=== PATIENT | female | born 1980 | race Caucasian/White ===

== ENCOUNTER 2017-02-16 13:37 | Emergency (ER) | payer OTHER ==
[~2017-02-16] VITALS: Ht 180.3 cm; Wt 68.0 kg
[~2017-02-16 13:37] MED LIST: ALBUTEROL0.09 MG/A1 INH; ANAPROX DS550 MG PO; ATARAX25 MG PO; BENADRYL25 MG PO; CIPRO500 MG PO; CLARITIN10 M1 PO; DUONEB 3 MG/3 ML3 M1 INH; FLEXERIL5 MG PO; FLONASE ALLERG9.9 ML NS; FLUTICASON0.05 MG/AC NAS; Fioricet 325 MG1 TAB PO; HYDROCODONE BIT1 T11 PO; IBUPROFEN400 MG PO; KEFLEX500 MG PO; MOTRIN800 MG PO; MYLICON, MYLANT80 MG PO; Motrin,Rufen800 MG PO; NKHM; NKHM PO; NORCO 325 MG-51 TAB PO; NORCO 5-325 TA1 EACH PO; Orphenadrine C100 MG PO; PREDNICOT20 MG PO; PREDNISONE10 MG PO; PREDNISONE20 M1 PO; Percocet 325 MG1 TAB PO; ROBITUSSIN AC 110 ML PO; SYNTHROID0.025 MG PO; TRIAMCINOLONE M1 POW INH; VENTOLIN H0.09 MG/AC INH; VOLTAREN50 M1 PO; ZITHROMAX250 MG PO; ZOFRAN ODT4 MG SL; ZOFRAN4 MG PO
[2017-02-16] MEDS ORDERED: PREDNISONE10 MG PO (15:38)
[2017-02-16] MEDS ORDERED: LEVOFLOXACIN500 MG PO (15:38)
[2017-02-16] MEDS ORDERED: DUONEB 3 MG/3 ML3 M1 INH (15:45)
== END 2017-02-16 15:46 | disposition home or self-care (01) ==
LOC: ED 13:37
DX: J18.1 Lobar pneumonia, unspecified organism (principal); F17.200 Nicotine dependence, unspecified, uncomplicated; Z91.011 Allergy to milk products; Z91.012 Allergy to eggs; Z91.018 Allergy to other foods; Z88.2 Allergy status to sulfonamides; Z79.899 Other long term (current) drug therapy

== ENCOUNTER 2017-10-26 20:00 | Inpatient (IN) | payer SELFPAY ==
[~2017-10-26] VITALS: Ht 180.3 cm; Wt 64.6 kg
--- NOTE | ~2017-10-26 | EKG ---
[place], [place] ELECTROCARDIOGRAM REPORT [id number] UN[facility] #: [id number] ROOM: [facility] DOCTOR: LUCY WOODS,TOM BIRTHDATE: [birth year] DOS: 10/26/2017 TIME: 2114 hours. IMPRESSION: 1. Sinus rhythm, sinus tachycardia. 2. Left atrial enlargement. 3. Nonspecific ST-T changes. OTM AYALA MD CM:EKGRPT:ELECTROCARDIOGRAM REPORT [id number] 1302 TOM AYALA MD
[~2017-10-26 20:00] MED LIST changes: +LEVOFLOXACIN500 MG PO
[2017-10-26 20:02] VITALS: BP 181/94
[2017-10-26 20:38] LABS: BASO # 0.1 10*3/uL (0.0-0.1); EOS # 1.5 10*3/uL (0.0-0.4); EOS % 17.6 % (1.0-4.0); HEMATOCRIT 45.4 % (37.0-47.0); HEMOGLOBIN 14.9 g/dl (12.0-16.0); LYMPH # 1.6 10*3/uL (1.3-4.4); LYMPH % 19.6 % (27.0-41.0); MEAN CELL VOLUME 91.9 fl (81.0-99.0); MEAN CORPUSCULAR HGB 30.2 pg (27.0-31.0); MEAN CORPUSCULAR HGB CONC 32.8 g/dl (33.0-37.0); MEAN PLATELET VOLUME 9.4 fl (9.6-12.3); MONO # 0.6 10*3/uL (0.1-1.0); MONO % 7.3 % (3.0-9.0); NEUT # 4.5 10*3/uL (2.3-7.9); NEUT % 54.1 % (47.0-73.0); PLATELET COUNT AUTOMATED 289 10*3/uL (130-400); RED BLOOD COUNT 4.94 10*6/uL (4.10-5.10); RED CELL DISTRI WIDTH 13.2 % (0-14.5); WHITE BLOOD COUNT 8.2 10*3/uL (4.8-10.8)
[2017-10-26 20:50] LABS: BUN 8 mg/dl (7-24); CHLORIDE 101 mmol/L (98-107); POTASSIUM 3.6 mmol/L (3.5-5.1); SODIUM 137 mmol/L (136-145)
[2017-10-26 22:15] VITALS: BP 139/86
[2017-10-26 22:36] LABS: ABG BASE EXCESS 2.3 mmol/L (-2.0-2.0); ABG HCO3 26.9 mmol/l (22-26); ABG O2 SATURATION 93.8 % (95-97); ARTERIAL BLOOD GAS PCO2 44.1 mmHg (35-45); ARTERIAL BLOOD GAS PH 7.403 (7.35-7.45); ARTERIAL BLOOD GAS PO2 66.3 mmHg (80-90)
[2017-10-26 22:43] VITALS: BP 128/78
[2017-10-26 23:15] VITALS: BP 124/77
[2017-10-27 06:39] LABS: BASO % 0.3 % (0.0-1.0); HEMATOCRIT 40.4 % (37.0-47.0); HEMOGLOBIN 13.1 g/dl (12.0-16.0); LYMPH # 0.8 10*3/uL (1.3-4.4); LYMPH % 12.7 % (27.0-41.0); MEAN CELL VOLUME 92.2 fl (81.0-99.0); MEAN CORPUSCULAR HGB 29.9 pg (27.0-31.0); MEAN CORPUSCULAR HGB CONC 32.4 g/dl (33.0-37.0); MEAN PLATELET VOLUME 9.9 fl (9.6-12.3); MONO # 0.3 10*3/uL (0.1-1.0); MONO % 3.9 % (3.0-9.0); NEUT # 5.4 10*3/uL (2.3-7.9); NEUT % 82.8 % (47.0-73.0); PLATELET COUNT AUTOMATED 278 10*3/uL (130-400); RED BLOOD COUNT 4.38 10*6/uL (4.10-5.10); RED CELL DISTRI WIDTH 13.2 % (0-14.5); WHITE BLOOD COUNT 6.5 10*3/uL (4.8-10.8)
[2017-10-27 06:50] LABS: ACT PARTIAL THROMBO TIME 24.8 SECONDS (20.8-31.5)
[2017-10-27 07:09] LABS: ALBUMIN 2.8 gm/dl (3.1-4.5); ALKALINE PHOSPHATASE 62 U/L (45-117); BUN 6 mg/dl (7-24); CHLORIDE 106 mmol/L (98-107); CHOLESTEROL 111 mg/dL (<200); CREATININE 0.49 mg/dL (0.55-1.02); FREE T4 1.27 ng/dl (0.76-1.46); HDL CHOLESTEROL 36 mg/dl (40-60); LDL CHOLESTEROL 65 mg/dL (9-159); POTASSIUM 4.2 mmol/L (3.5-5.1); SGOT/AST 30 IU/L (3-35); SGPT/ALT 39 U/L (12-78); SODIUM 140 mmol/L (136-145); TOTAL PROTEIN 6.5 gm/dL (6.4-8.2); TRIGLYCERIDES 49 mg/dl (<150); VLDL CHOLESTEROL 10 mg/dL (6-40)
[2017-10-27 07:14] LABS: THYROID STIM HORMONE (HS) 0.119 uIU/ml (0.358-4.75)
[2017-10-27 07:34] LABS: VITAMIN D, 25-HYDROXY 10.2 ng/mL (30-100)
[2017-10-27 08:00] VITALS: BP 122/72
[2017-10-27 12:00] VITALS: BP 144/89
[2017-10-27 15:59] VITALS: BP 131/79
[2017-10-27 20:00] VITALS: BP 113/61
[2017-10-28] VITALS: BP 112/69
[2017-10-28 06:44] LABS: BUN 4 mg/dl (7-24); CHLORIDE 108 mmol/L (98-107); CREATININE 0.63 mg/dL (0.55-1.02); POTASSIUM 4.1 mmol/L (3.5-5.1); SODIUM 142 mmol/L (136-145)
[2017-10-28 06:49] LABS: BASO % 0.1 % (0.0-1.0); HEMATOCRIT 41.5 % (37.0-47.0); HEMOGLOBIN 13.5 g/dl (12.0-16.0); LYMPH # 1.1 10*3/uL (1.3-4.4); LYMPH % 7.5 % (27.0-41.0); MEAN CELL VOLUME 93.3 fl (81.0-99.0); MEAN CORPUSCULAR HGB 30.3 pg (27.0-31.0); MEAN CORPUSCULAR HGB CONC 32.5 g/dl (33.0-37.0); MEAN PLATELET VOLUME 9.4 fl (9.6-12.3); MONO # 0.6 10*3/uL (0.1-1.0); MONO % 3.9 % (3.0-9.0); NEUT # 13.3 10*3/uL (2.3-7.9); NEUT % 88.2 % (47.0-73.0); PLATELET COUNT AUTOMATED 361 10*3/uL (130-400); RED BLOOD COUNT 4.45 10*6/uL (4.10-5.10); RED CELL DISTRI WIDTH 13.4 % (0-14.5); WHITE BLOOD COUNT 15.1 10*3/uL (4.8-10.8)
[2017-10-28 08:00] VITALS: BP 112/64
[2017-10-28 12:00] VITALS: BP 104/64
[2017-10-28 16:00] VITALS: BP 130/72
[2017-10-28 20:01] VITALS: BP 122/61
[2017-10-29] VITALS: BP 136/77
[2017-10-29 08:00] VITALS: BP 138/60
[2017-10-29 08:12] LABS: HIV 1+2 AB + HIV1 P24 AG Non Reactive (Non Reactive)
[2017-10-29 12:00] VITALS: BP 126/64
[2017-10-29 16:00] VITALS: BP 118/76
[2017-10-29 20:00] VITALS: BP 142/92
[2017-10-30] VITALS: BP 121/72; BP 132/73
[2017-10-30 06:59] LABS: BASO % 0.1 % (0.0-1.0); HEMATOCRIT 39.6 % (37.0-47.0); HEMOGLOBIN 13.2 g/dl (12.0-16.0); LYMPH # 1.5 10*3/uL (1.3-4.4); LYMPH % 16.1 % (27.0-41.0); MEAN CELL VOLUME 91.7 fl (81.0-99.0); MEAN CORPUSCULAR HGB 30.6 pg (27.0-31.0); MEAN CORPUSCULAR HGB CONC 33.3 g/dl (33.0-37.0); MEAN PLATELET VOLUME 9.3 fl (9.6-12.3); MONO # 0.5 10*3/uL (0.1-1.0); MONO % 5.7 % (3.0-9.0); NEUT % 77.8 % (47.0-73.0); PLATELET COUNT AUTOMATED 340 10*3/uL (130-400); RED BLOOD COUNT 4.32 10*6/uL (4.10-5.10); RED CELL DISTRI WIDTH 13.5 % (0-14.5)
[2017-10-30 07:14] LABS: BUN 10 mg/dl (7-24); CHLORIDE 109 mmol/L (98-107); CREATININE 0.67 mg/dL (0.55-1.02); POTASSIUM 4.1 mmol/L (3.5-5.1); SODIUM 143 mmol/L (136-145)
[2017-10-30 08:00] VITALS: BP 136/94
[2017-10-30] MEDS ORDERED: MUCINEX ER600 MG PO (09:55)
[2017-10-30] MEDS ORDERED: LEVAQUIN750 M1 PO (09:55)
[2017-10-30] MEDS ORDERED: PREDNISONE10 MG PO (09:55)
[2017-10-30] MEDS ORDERED: VITAMIN D5000 UNI1 PO (09:55)
[2017-10-30 15:08] LABS: LEGIONELLA URINARY ANTIGEN Negative (Negative)
== END 2017-10-30 12:08 | disposition home or self-care (01) | DRG 871 ==
LOC: ED 20:00 → EDHOLD 21:54 → 5E 21:54
PROVIDERS: Emergency Medicine Emergency Medical Services; Hospitalist; Internal Medicine; Student in an Organized Health Care Education/Training Program; ADMIT Internal Medicine
DX: A41.9 Sepsis, unspecified organism (principal); J96.01 Acute respiratory failure with hypoxia; E43 Unspecified severe protein-calorie malnutrition; J18.1 Lobar pneumonia, unspecified organism; Z68.1 Body mass index [BMI] 19.9 or less, adult; R65.20 Severe sepsis without septic shock; I16.0 Hypertensive urgency; E55.9 Vitamin D deficiency, unspecified; J42 Unspecified chronic bronchitis; J45.909 Unspecified asthma, uncomplicated; F17.210 Nicotine dependence, cigarettes, uncomplicated; Z88.2 Allergy status to sulfonamides; Z91.012 Allergy to eggs; Z91.018 Allergy to other foods; Z79.899 Other long term (current) drug therapy; Z71.6 Tobacco abuse counseling; Z87.01 Personal history of pneumonia (recurrent); Z90.710 Acquired absence of both cervix and uterus; Z84.89 Family history of other specified conditions

== ENCOUNTER 2017-12-01 10:06 | Inpatient (IN) | payer SELFPAY ==
[~2017-12-01] VITALS: Ht 180.3 cm; Wt 65.0 kg
[2017-12-01] VITALS (7 sets, daily range): BP systolic 106–146; BP diastolic 66–92
--- NOTE | ~2017-12-01 | PR ---
[place], [place] PROGRESS NOTE NAME: ANGÉLICA COLEY UNIT #: [id number] ROOM: 4007 DOCTOR: CONCHIS ANAIS BIRTHDATE: [birth year] DOS: 12/04/2017 SUBJECTIVE: The patient was seen and examined at bedside. The patient was sitting upright in bed in no acute distress. The patient reports that her respiratory symptoms have dramatically improved since yesterday and continues to feel better every day. The patient denies any kind of chest pain, productive cough or shortness of breath this morning. OBJECTIVE: VITAL SIGNS: Temperature is 98.0, pulse is 92, respirations 18, blood pressure 116/78, pulse ox 94% on room air. HEENT: No acute change. NECK: Supple, nontender. CARDIOVASCULAR: Regular rate and rhythm. No murmur, gallops or rubs. S1 and S2 audible. LUNGS: No crackles, mild expiratory wheezes were noted; however, this was improved from the time of admission. ABDOMEN: Soft and nontender. Bowel sounds are present. EXTREMITIES: Without any acute edema. SKIN: Clear of any rashes or lesions. MUSCULOSKELETAL: No musculoskeletal deformity. NEUROLOGIC: Her cranial nerves are grossly intact. IMPRESSION: 1. Bronchial asthma with acute exacerbation. 2. Ground glass opacities in right upper lung and left upper lung concerning for bronchiolitis. 3. Chronic nicotine abuse. PLAN OF CARE: The patient was cleared for discharge from a pulmonary standpoint. The patient is encouraged to follow up with Dr. Paige outpatient for further care and encouraged to stop smoking if possible. Continue with home medications for respiratory therapy including antibiotics, steroid taper and bronchodilators. ANAIS CONCHIS, DO [place], [place] PROGRESS NOTE NAME: ANGÉLICA COLEY UNIT #: [id number] ROOM: [facility] [place] DOCTOR: CONCHIS ANAIS BIRTHDATE: [birth year] HARPAL PAIGE MD CM:MARITZA [id number] ANAIS BALDERRAMA DO 12/05/17 0248 interface
--- NOTE | ~2017-12-01 | PR ---
[place], [place] PROGRESS NOTE NAME: ANGÉLICA COLEY [facility] #: [id number] UNIT #: [id number] ROOM: 4007 DOCTOR: HARPAL GARSIA MD BIRTHDATE: [birth year] DOS: 12/03/2017 SUBJECTIVE: She has been noted comfortable at this time with the reduction of respiratory symptoms continued. Denies symptoms of her chest pain or hemoptysis. Denies any abdominal pain. OBJECTIVE: VITAL SIGNS: For the patient, which was done shows a normal temperature, respiratory rate 17, heart rate of 113-92, blood pressure 118/61-135/90. The pulse oxygen saturation on 2 liters nasal cannula 94% saturation. HEENT: No acute change. NECK: Supple. CARDIOVASCULAR: S1, S2 audible. LUNGS: The patient was noted without any crackles. Mild expiratory wheezing was noted. Decreased wheezing from previous examination of yesterday. ABDOMEN: Soft, nontender. Bowel sounds present. EXTREMITIES: Without any acute edema. SKIN: Visible skin. No lesions or rashes. MUSCULOSKELETAL: No deformities. CENTRAL NERVOUS SYSTEM: Intact. LABORATORY DATA: The culture of the sputum was pending. The Gram stain shows many gram-positive cocci in pairs, chains and clusters with few epithelial cells and white blood cells. Blood cultures, no bacterial growth taken on 12/01/2017. The CT scan of the chest that I ordered without contrast for the patient was reviewed. The CT scan of the chest does not show any lymphadenopathy. There was a ground glass opacity localized in the posterior basal subsegment of the left upper lobe was noted. Another opacity was also noted as ground glass opacity in the right upper lobe as well. There was no associated lymphadenopathy. 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 A 6-mm right lower lobe nodule noted, pleural based as well. IMPRESSION: 1. The patient who has been currently admitted to the hospital noted with acute exacerbation, appears like bronchial asthma. 2. Ground glass opacity in the right upper lobe as well as left upper lobe, possible consideration for the pneumonia including respiratory bronchiolitis with the interstitial lung disease related to tobacco use, cannot be completely excluded. 3. History of chronic nicotine abuse with gradual reduction and discontinuation. Culture of the sputum was noted as normal bob preliminary. Final culture results were pending. PLAN OF MANAGEMENT: Continuation of the corticosteroids, bronchodilators, antibiotics as previously. Reassessment of the CT scan in about 3 months for this patient would be needed to document the resolution of the problem. If the finding remains persistent, the patient would be first investigated for nonspecific interstitial pneumonitis and other etiology. Absolute tobacco cessation would be mandatory for this patient as well. Other supportive plan of [place], [place] PROGRESS NOTE NAME: [id number] UNIT #: [id number] ROOM: 4007 DOCTOR: GRECIA JACKSON MD,HARPAL BIRTHDATE: [birth year] therapy care and management plan. She would be started on the medication such as Dulera during the hospitalization. The dose of Solu-Medrol will be decreased to 40 mg b.i.d. HARPAL PAIGE MD CM:PNTRANS [id number] HARPAL JACKSON MD 12/04/17 0525 interface
--- NOTE | ~2017-12-01 | PR ---
[place], [place] PROGRESS NOTE NAME: ANGÉLICA COLEY UNIT #: [id number] ROOM: 4007 DOCTOR: HARPAL GARSIA MD BIRTHDATE: [birth year] DOS: 12/04/2017 SUBJECTIVE: The patient was independently seen and examined for today's visit with [id number] encounter. The history was confirmed. Physical examination was personally confirmed. All the labs were reviewed. The assessment, medical change, or recommendation was personally made. The note done by the medical art therapist was approved as well. The patient has been noted with marked improvement and reduction in respiratory symptoms, shortness of breath, and wheezing. There was no shortness of breath reported. Denies symptoms of chest pain or further chest congestion. OBJECTIVE: VITAL SIGNS: Essentially noted as normal. The pulse oxygen saturation on room air at rest was recorded 94% saturation. CARDIOVASCULAR: Auscultation of the chest was noted without any wheezing at this time. LUNGS: Decreased breath sounds noted in the lungs bilaterally. ABDOMEN: Flat, soft, nontender. LABORATORY DATA: Sputum culture preliminary noted as normal bob. Final culture results were pending. IMPRESSION: Small subpleural 6 mm nodule for the patient noted in the right lung with basilar areas of atelectasis, questionable pneumonia. She was also showing progressive resolution improvement in the findings of acute chronic obstructive pulmonary disease exacerbation and past history of nicotine dependence. PLAN OF MANAGEMENT: The patient could be discharged home on tapering dose of prednisone and antibiotics. Abstinence of the tobacco use will be encouraged for future. Short acting bronchodilators, use of the medication such as Dulera was advised as well. For the pulmonary nodule, further assessment was advised for office followup visit in about one month. The interstitial findings are noted on the chest x-ray ground glass opacity in the left lower lobe, will require further assessment, which may be related to the pulmonary infection or other etiologies. [place], [place] PROGRESS NOTE NAME: ANGÉLICA COLEY UNIT #: [id number] ROOM: [facility] DOCTOR: HARPAL GARSIA MD BIRTHDATE: [birth year] HARPAL PAIGE MD CM:PNTRANS [id number] HARPAL JACKSON MD 12/05/17 0050 interface
--- NOTE | ~2017-12-01 | CON ---
[place], [place] REPORT OF CONSULTATION NAME: ANGÉLICA COLEY [facility] #: [id number] UNIT #: [id number] ROOM: 4007 DOCTOR: HARPAL GARSIA MD BIRTHDATE: [birth year] DOS: 12/02/2017 REASON FOR CONSULTATION: To assess the patient for ongoing acute exacerbation of bronchial asthma assessment with recurrent hospitalization after recent admission to the hospital. HISTORY OF PRESENT ILLNESS: This is a 37-year-old white female who has been admitted in the hospital under the care of hospitalist services in 10/2018. The patient remains in the hospital from 10/27/2017 until 10/30/2017. She was treated for the right middle lobe pneumonia at that time. The patient stated that he has been noted with history of chronic tobacco use, which has been gradually decreased to few cigarettes a day. She came into the hospital and she started with having increased respiratory symptom past 1 week or so. She has started with having increased chest congestion with shortness of breath. Chest tightness was occurring intermittently with current symptom. The patient denies symptoms of hemoptysis. She does have symptoms of wheezing. The patient stated that she came into the hospital for further assessment thinking that she may be developing pneumonia again as previously. REVIEW OF SYSTEMS: CONSTITUTIONAL: She does have symptoms of fatigue and tiredness. Denies symptoms of fever or chills. EYES: Denies burning, redness, tenderness. EARS, NOSE, THROAT SYMPTOMS: Denies sore throat, hoarseness, otalgia, postnasal drainage or epistaxis. CARDIOVASCULAR: Denies anginal pain, edema of the lower extremities or palpitations. GASTROINTESTINAL: Dysphagia, nausea, vomiting, diarrhea, abdominal pain, hematemesis, melena. GENITOURINARY: Hematochezia. SKIN: Denies lesions or rashes. MUSCULOSKELETAL: Denies any symptoms of acute joint pain, redness, or tenderness. CENTRAL NERVOUS SYSTEM: Dizziness, headache, diplopia, syncopal episode. Remaining systems were reviewed. They were noted all negative. PAST MEDICAL HISTORY: The patient was reported as right middle lobe pneumonia for the patient treated in 10/2017. The patient with a possibility of bronchial asthma as well. SOCIAL HISTORY: The patient stated she is , has 2 children, lives at home. Known to have tobacco use of half a pack of cigarettes per day and stated she has not smoked any cigarettes in the past 1 week. Denies use of alcohol use, illicit drug use. Occupation related pulmonary exposure. FAMILY HISTORY: The patient was known with a seizure in the father and multiple sclerosis in the mother. HOME MEDICATIONS: Listed were used of DuoNeb, Mucinex, vitamin D, and Ventolin [place], [place] REPORT OF CONSULTATION NAME: ANGÉLICA COLEY UNIT #: [id number] ROOM: 4007 DOCTOR: HARPAL GARSIA MD BIRTHDATE: [birth year] HFA inhaler p.r.n. use as well. She stated that she also use the Flonase at times at home and Advair. DRUG ALLERGIES: NOTED ALLERGY TO BACTRIM. PHYSICAL EXAMINATION: GENERAL: A 37-year-old white female noted currently awake and alert without any acute distress at this time of the assessment. She has been sitting on the bed. Height of 5 feet 11 inches, weight 143 pounds, BMI 19.9. VITAL SIGNS: The patient showed the temperature noted 99.2 degree Fahrenheit. The respiratory rate of the patient recorded as 18-20, heart rate of 98-136 noted previously on admission. Respiratory rate 100. The blood pressure 118/82-132/84. Pulse oxygen saturation of the patient recorded on 2 liters nasal cannula 95% saturation. Admission oxygen saturation on room air was 88% at rest. HEENT: Examination shows head was atraumatic. Eye nonicterus. NECK: Supple. CARDIOVASCULAR: S1, S2 audible. LUNGS: Noted with moderate to severe reduced breath sounds bilaterally, diffuse expiratory wheezing without any crackles. ABDOMEN: Flat, soft, nontender, no organomegaly. Bowel sounds present. CENTRAL NERVOUS SYSTEM: Cranial nerves 2-12 intact. VISIBLE SKIN: No lesions or rashes. MUSCULOSKELETAL: No deformities. CENTRAL NERVOUS SYSTEM: Cranial nerves 2-12 intact without any gross focal neurologic deficit. LABORATORY DATA: CBC on admission on 12/01/2017 noted as normal CBC. The lactic acid noted 0.9 on 12/01/2017. CMP of the patient of 12/01/2017, normal BUN and creatinine. AST elevated at 155, ALT of 249. Normal alkaline phosphatase, bilirubin, total protein and albumin. The troponin first set was noted normal. CBC repeated this morning, WBC count 11.1, remaining CBC was normal. The PT, PTT till day was normal. CMP repeated this morning, AST, ALT was still elevated for the patient. Remaining electrolytes including BUN and creatinine remains normal. The review of the radiology data for this patient. The chest x-ray of the patient that was done for the patient previous admission for the patient was reviewed. The patient 10/26/2017, the patient shows increased interstitial marking, possible patchy infiltration in the right middle lobe was noted. The remaining lung was noted clear. Severe hyperinflation; however, noted. 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 She had a CT of the chest that was done in 2014 was also reviewed, shows small patchy area of ground glass opacity noted mostly in the left upper lobe. At that time, no other parenchymal abnormalities were noted. The chest x-ray of the patient that was done for this patient on this admission of 12/01/2017, for the patient shows reduction of the patchy infiltration; however, the finding was noted suboptimally resolved in the right middle lobe. Severe hyperinflation in the lung was still noted. The excess of the right upper lobe was still visible and previously without any change or other new abnormal findings. [place], [place] REPORT OF CONSULTATION NAME: [id number] UN[facility] #: [id number] ROOM: 4007 DOCTOR: HARPAL GARSIA MD BIRTHDATE: [birth year] IMPRESSION: 1. The patient who has been admitted to the hospital, seems to have a severe acute exacerbation of bronchial asthma or COPD should be considered as well with history of tobacco use. Severe hyperinflation of the lung for this patient is suggested possibility of a severe bronchial asthma as well. 2. Lack of compliance with the patient with the medication for the medical bronchial asthma cannot be completely excluded. History of nicotine abuse was also reported, but the patient stating no tobacco use in the past 1 week or so. Also, rule out other etiology for the current severe hyperinflation and COPD changes of this patient at this age is eosinophilic granuloma other kind of abnormalities in the lung parenchyma. PLAN OF TREATMENT: The patient will be ordered CT scan of the chest for the patient with high resolution of the patient without contrast for further detailed assessment of the lung parenchyma. In the meantime, continue the patient on the corticosteroids with the patient same dose of 40 mg q. 8h., DuoNeb q. 4h., and the antibiotics. Other supportive therapy, plan of management to be continued as well. Nicotine replacement patches has been already ordered for the patient to overcome any nicotine withdrawal symptoms by the primary care attending. Sputum for Gram stain culture was ordered for the patient as well. HARPAL PAIGE MD CM:CONSTR:REPORT OF CONSULTATION 1426 12/02/17 6589 interface
[~2017-12-01 10:06] MED LIST changes: +LEVAQUIN750 M1 PO; +MUCINEX ER600 MG PO; +VITAMIN D5000 UNI1 PO
[2017-12-01 11:01] LABS: BASO % 0.4 % (0.0-1.0); EOS # 0.1 10*3/uL (0.0-0.4); EOS % 0.7 % (1.0-4.0); HEMATOCRIT 44.1 % (37.0-47.0); HEMOGLOBIN 14.7 g/dl (12.0-16.0); LYMPH # 1.7 10*3/uL (1.3-4.4); LYMPH % 15.9 % (27.0-41.0); MEAN CELL VOLUME 90.4 fl (81.0-99.0); MEAN CORPUSCULAR HGB 30.1 pg (27.0-31.0); MEAN CORPUSCULAR HGB CONC 33.3 g/dl (33.0-37.0); MEAN PLATELET VOLUME 9.4 fl (9.6-12.3); MONO # 0.9 10*3/uL (0.1-1.0); MONO % 8.9 % (3.0-9.0); NEUT # 7.7 10*3/uL (2.3-7.9); NEUT % 73.8 % (47.0-73.0); PLATELET COUNT AUTOMATED 222 10*3/uL (130-400); RED BLOOD COUNT 4.88 10*6/uL (4.10-5.10); RED CELL DISTRI WIDTH 13.8 % (0-14.5); WHITE BLOOD COUNT 10.4 10*3/uL (4.8-10.8)
[2017-12-01 11:18] LABS: ALBUMIN 3.6 gm/dl (3.1-4.5); ALKALINE PHOSPHATASE 79 U/L (45-117); BUN 7 mg/dl (7-24); CHLORIDE 101 mmol/L (98-107); CREATININE 0.65 mg/dL (0.55-1.02); POTASSIUM 3.6 mmol/L (3.5-5.1); SGOT/AST 155 IU/L (3-35); SGPT/ALT 249 U/L (12-78); SODIUM 137 mmol/L (136-145); TOTAL PROTEIN 7.5 gm/dL (6.4-8.2)
[2017-12-01 11:22] LABS: TROPONIN I < 0.015 ng/ml (<0.045)
[2017-12-01] MEDS ORDERED: MUCINEX1200 M1 PO (14:16)
[2017-12-02] VITALS: BP 110/63
[2017-12-02 08:00] VITALS: BP 118/82
[2017-12-02 08:21] LABS: BASO % 0.1 % (0.0-1.0); HEMATOCRIT 44.9 % (37.0-47.0); HEMOGLOBIN 14.8 g/dl (12.0-16.0); LYMPH # 1.1 10*3/uL (1.3-4.4); LYMPH % 9.6 % (27.0-41.0); MEAN CELL VOLUME 90.2 fl (81.0-99.0); MEAN CORPUSCULAR HGB 29.7 pg (27.0-31.0); MEAN PLATELET VOLUME 9.8 fl (9.6-12.3); MONO # 0.6 10*3/uL (0.1-1.0); MONO % 5.6 % (3.0-9.0); NEUT # 9.3 10*3/uL (2.3-7.9); NEUT % 84.2 % (47.0-73.0); PLATELET COUNT AUTOMATED 265 10*3/uL (130-400); RED BLOOD COUNT 4.98 10*6/uL (4.10-5.10); RED CELL DISTRI WIDTH 13.9 % (0-14.5); WHITE BLOOD COUNT 11.1 10*3/uL (4.8-10.8)
[2017-12-02 08:47] LABS: ACT PARTIAL THROMBO TIME 23.1 SECONDS (20.8-31.5); INTERNATIONAL NORM RATIO 1.1 (2.0-3.5)
[2017-12-02 08:53] LABS: VITAMIN D, 25-HYDROXY 18.8 ng/mL (30-100)
[2017-12-02 08:54] LABS: ALBUMIN 3.5 gm/dl (3.1-4.5); ALKALINE PHOSPHATASE 77 U/L (45-117); BUN 9 mg/dl (7-24); CHLORIDE 106 mmol/L (98-107); CHOLESTEROL 152 mg/dL (<200); CREATININE 0.74 mg/dL (0.55-1.02); FREE T4 1.28 ng/dl (0.76-1.46); HDL CHOLESTEROL 55 mg/dl (40-60); LDL CHOLESTEROL 84 mg/dL (9-159); PHOSPHOROUS 3.2 mg/dL (2.5-4.9); POTASSIUM 4.2 mmol/L (3.5-5.1); SGOT/AST 156 IU/L (3-35); SGPT/ALT 262 U/L (12-78); SODIUM 143 mmol/L (136-145); TOTAL PROTEIN 7.6 gm/dL (6.4-8.2); TRIGLYCERIDES 67 mg/dl (<150); VLDL CHOLESTEROL 13 mg/dL (6-40)
[2017-12-02 08:59] LABS: THYROID STIM HORMONE (HS) 0.089 uIU/ml (0.358-4.75)
[2017-12-02 12:00] VITALS: BP 120/73
[2017-12-02 16:00] VITALS: BP 122/67
[2017-12-02 20:00] VITALS: BP 121/80
[2017-12-03] VITALS (7 sets, daily range): BP systolic 106–160; BP diastolic 60–90
[2017-12-03 09:07] LABS: HEPATITIS B SURFACE AG Negative (Negative)
[2017-12-03 13:29] LABS: HEPATITIS C VIRUS ANTIBODY 8.9 s/co (0.0-0.9)
[2017-12-04] VITALS: BP 118/72
[2017-12-04 04:00] VITALS: BP 122/71
[2017-12-04] MEDS ORDERED: LEVAQUIN750 M1 PO (07:28)
[2017-12-04] MEDS ORDERED: NICODERM CQ1 EAC2 T (07:28)
[2017-12-04] MEDS ORDERED: DULE1ARO INH (07:28)
[2017-12-04] MEDS ORDERED: PREDNISONE10 MG PO (07:28)
[2017-12-04 08:00] VITALS: BP 116/78
[2017-12-04] MEDS ORDERED: DUONEB 3 MG/3 ML3 M1 INH (10:40)
[2017-12-04] MEDS ORDERED: VITAMIN D5000 UNI1 PO ×2 (10:40→10:42)
[2017-12-04 16:00] VITALS: BP 120/74
== END 2017-12-04 18:44 | disposition home or self-care (01) | DRG 871 ==
LOC: ED 10:06 → EDHOLD 12:30 → 4E 12:30 → 4NE 12-02 21:43
PROVIDERS: Registered Nurse; Student in an Organized Health Care Education/Training Program
DX: A41.9 Sepsis, unspecified organism (principal); J96.01 Acute respiratory failure with hypoxia; E43 Unspecified severe protein-calorie malnutrition; J44.0 Chronic obstructive pulmonary disease with (acute) lower respiratory infection; J18.9 Pneumonia, unspecified organism; J44.1 Chronic obstructive pulmonary disease with (acute) exacerbation; R91.1 Solitary pulmonary nodule; J45.901 Unspecified asthma with (acute) exacerbation; Z68.1 Body mass index [BMI] 19.9 or less, adult; R65.20 Severe sepsis without septic shock; E55.9 Vitamin D deficiency, unspecified; F17.210 Nicotine dependence, cigarettes, uncomplicated; Z98.891 History of uterine scar from previous surgery; Z79.899 Other long term (current) drug therapy; Z90.710 Acquired absence of both cervix and uterus; Z88.1 Allergy status to other antibiotic agents; Z71.6 Tobacco abuse counseling; Z91.012 Allergy to eggs; Z91.011 Allergy to milk products; Z88.2 Allergy status to sulfonamides; Z91.018 Allergy to other foods; Z82.0 Family history of epilepsy and other diseases of the nervous system

== ENCOUNTER 2018-03-11 15:21 | Emergency (ER) | payer SELFPAY ==
[~2018-03-11] VITALS: Ht 154.9 cm; Wt 65.8 kg
[~2018-03-11 15:21] MED LIST changes: +DULE1ARO INH; +MUCINEX1200 M1 PO; +NICODERM CQ1 EAC2 T
[2018-03-11 16:31] LABS: BASO # 0.1 10*3/uL (0.0-0.1); BASO % 1.4 % (0.0-1.0); EOS # 0.7 10*3/uL (0.0-0.4); EOS % 10.7 % (1.0-4.0); HEMOGLOBIN 14.6 g/dl (12.0-16.0); LYMPH # 2.2 10*3/uL (1.3-4.4); LYMPH % 33.1 % (27.0-41.0); MEAN CELL VOLUME 90.9 fl (81.0-99.0); MEAN CORPUSCULAR HGB 29.5 pg (27.0-31.0); MEAN CORPUSCULAR HGB CONC 32.4 g/dl (33.0-37.0); MEAN PLATELET VOLUME 9.2 fl (9.6-12.3); MONO # 0.5 10*3/uL (0.1-1.0); MONO % 7.8 % (3.0-9.0); NEUT # 3.1 10*3/uL (2.3-7.9); NEUT % 46.8 % (47.0-73.0); PLATELET COUNT AUTOMATED 260 10*3/uL (130-400); RED BLOOD COUNT 4.95 10*6/uL (4.10-5.10); RED CELL DISTRI WIDTH 13.8 % (0-14.5); WHITE BLOOD COUNT 6.5 10*3/uL (4.8-10.8)
[2018-03-11 16:52] LABS: ALBUMIN 3.5 gm/dl (3.1-4.5); ALKALINE PHOSPHATASE 82 U/L (45-117); BUN 12 mg/dl (7-24); CHLORIDE 105 mmol/L (98-107); CREATININE 0.67 mg/dL (0.55-1.02); POTASSIUM 3.9 mmol/L (3.5-5.1); SGOT/AST 86 IU/L (3-35); SGPT/ALT 133 U/L (12-78); SODIUM 141 mmol/L (136-145)
[2018-03-11] MEDS ORDERED: LEVOFLOXACIN500 MG PO (17:59)
[2018-03-11] MEDS ORDERED: PREDNISONE10 MG PO (17:59)
[2018-03-11] MEDS ORDERED: DUONEB 3 MG/3 ML3 M1 INH (18:02)
== END 2018-03-11 18:07 | disposition home or self-care (01) ==
LOC: ED 15:21
PROVIDERS: Nurse Practitioner
DX: J45.901 Unspecified asthma with (acute) exacerbation (principal); F17.210 Nicotine dependence, cigarettes, uncomplicated; Z98.890 Other specified postprocedural states; Z90.710 Acquired absence of both cervix and uterus; Z79.899 Other long term (current) drug therapy; Z88.1 Allergy status to other antibiotic agents; Z88.8 Allergy status to other drugs, medicaments and biological substances; Z91.011 Allergy to milk products; Z88.2 Allergy status to sulfonamides

== ENCOUNTER 2018-12-25 02:26 | Emergency (ER) | payer OTHER ==
[~2018-12-25] VITALS: Ht 180.3 cm; Wt 65.8 kg
--- NOTE | ~2018-12-25 | EKG ---
[place], [place] ELECTROCARDIOGRAM REPORT NAME: ANGÉLICA COLEY UNIT #: [id number] ROOM: DOCTOR: EPIPHANY DRAFT REPORT BIRTHDATE: [birth year] [facility] Test Date: 2018-12-25 Test Time: 02:46:07 Pat Name: ANGÉLICA COLEY Department: ER Room: 6 Gender: F Fireperson: Thelma Piedra : 1980 Requested By: SANDHYA ROBERT Order Number: [id number] Reading MD: Aleena Solorzano MD Measurements Intervals [place] Rate: 87 P: 75 DE: 143 QRS: 77 QRSD: 84 T: 73 QT: 376 QTc: 453 Interpretive Statements Sinus rhythm Probable left atrial enlargement Nonspecific T abnrm, anterolateral leads Electronically Signed On 12-26-2018 9:47:01 PST by Aleena Solorzano MD CM:EKGRPT:ELECTROCARDIOGRAM REPORT [id number] 0947 SANDHYA DOSS DRAFT REPORT SANDHYA ROBERT DO
[2018-12-25 02:50] LABS: BASO # 0.1 10*3/uL (0.0-0.1); BASO % 0.6 % (0.0-1.0); EOS # 0.3 10*3/uL (0.0-0.4); EOS % 3.3 % (1.0-4.0); HEMATOCRIT 47.9 % (37.0-47.0); HEMOGLOBIN 15.3 g/dl (12.0-16.0); LYMPH # 2.6 10*3/uL (1.3-4.4); LYMPH % 32.8 % (27.0-41.0); MEAN CELL VOLUME 90.7 fl (81.0-99.0); MEAN CORPUSCULAR HGB CONC 31.9 g/dl (33.0-37.0); MEAN PLATELET VOLUME 9.1 fl (9.6-12.3); MONO # 0.6 10*3/uL (0.1-1.0); MONO % 7.3 % (3.0-9.0); NEUT # 4.5 10*3/uL (2.3-7.9); NEUT % 55.9 % (47.0-73.0); PLATELET COUNT AUTOMATED 229 10*3/uL (130-400); RED BLOOD COUNT 5.28 10*6/uL (4.10-5.10); RED CELL DISTRI WIDTH 14.9 % (0-14.5)
[2018-12-25 03:08] LABS: ALBUMIN 4.3 gm/dl (3.1-4.5); ALKALINE PHOSPHATASE 84 U/L (45-117); BUN 11 mg/dl (7-24); CHLORIDE 110 mmol/L (98-107); CREATININE 0.79 mg/dL (0.55-1.02); POTASSIUM 3.4 mmol/L (3.5-5.1); SGOT/AST 57 IU/L (3-35); SGPT/ALT 145 U/L (12-78); SODIUM 145 mmol/L (136-145); TOTAL PROTEIN 8.8 gm/dL (6.4-8.2)
[2018-12-25 03:09] LABS: BETA-HCG, QUANT < 1.0 mIU/mL (1-3); TROPONIN I < 0.015 ng/ml (<0.045)
== END 2018-12-25 04:02 | disposition home or self-care (01) ==
LOC: ED 02:26
PROVIDERS: Student in an Organized Health Care Education/Training Program
DX: S00.31XA Abrasion of nose, initial encounter (principal); S09.90XA Unspecified injury of head, initial encounter; R42 Dizziness and giddiness; R53.1 Weakness; Z88.2 Allergy status to sulfonamides; W18.39XA Other fall on same level, initial encounter; Y93.89 Activity, other specified; Y92.89 Other specified places as the place of occurrence of the external cause; Y99.8 Other external cause status

== ENCOUNTER 2019-01-13 09:06 | Emergency (ER) | payer OTHER ==
[~2019-01-13] VITALS: Ht 180.3 cm; Wt 65.8 kg
--- NOTE | ~2019-01-13 | EKG ---
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
[2019-01-13 09:42] LABS: BASO # 0.1 10*3/uL (0.0-0.1); BASO % 0.6 % (0.0-1.0); EOS # 0.2 10*3/uL (0.0-0.4); EOS % 1.9 % (1.0-4.0); HEMATOCRIT 44.9 % (37.0-47.0); HEMOGLOBIN 14.7 g/dl (12.0-16.0); LYMPH # 2.4 10*3/uL (1.3-4.4); LYMPH % 19.3 % (27.0-41.0); MEAN CELL VOLUME 88.7 fl (81.0-99.0); MEAN CORPUSCULAR HGB 29.1 pg (27.0-31.0); MEAN CORPUSCULAR HGB CONC 32.7 g/dl (33.0-37.0); MEAN PLATELET VOLUME 9.1 fl (9.6-12.3); MONO # 0.7 10*3/uL (0.1-1.0); MONO % 5.5 % (3.0-9.0); NEUT % 72.4 % (47.0-73.0); PLATELET COUNT AUTOMATED 299 10*3/uL (130-400); RED BLOOD COUNT 5.06 10*6/uL (4.10-5.10); RED CELL DISTRI WIDTH 14.8 % (0-14.5); WHITE BLOOD COUNT 12.4 10*3/uL (4.8-10.8)
[2019-01-13 09:50] LABS: BILIRUBIN NEGATIVE (NEGATIVE); BLOOD NEGATIVE (NEGATIVE); CLARITY CLEAR (CLEAR); COLOR YELLOW (YELLOW); GLUCOSE NEGATIVE (NEGATIVE); KETONE NEGATIVE (NEGATIVE); LEUKO ESTERASE NEGATIVE (NEGATIVE); NITRITE NEGATIVE (NEGATIVE); PH 7.5 (5.0-9.0); SPECIFIC GRAVITY 1.015 (1.005-1.030); UROBILINOGEN 0.2 E.U./dl (0.2-1.0)
[2019-01-13 09:57] LABS: ALBUMIN 3.7 gm/dl (3.1-4.5); ALKALINE PHOSPHATASE 87 U/L (45-117); BUN 9 mg/dl (7-24); CHLORIDE 108 mmol/L (98-107); CREATININE 0.72 mg/dL (0.55-1.02); POTASSIUM 3.7 mmol/L (3.5-5.1); SGOT/AST 119 IU/L (3-35); SGPT/ALT 264 U/L (12-78); SODIUM 142 mmol/L (136-145); TOTAL PROTEIN 7.9 gm/dL (6.4-8.2)
[2019-01-13 10:01] LABS: EPITHELIAL CELLS 0-2; MUCOUS TRACE; WBC 0-2 wbc/hpf (0-5)
[2019-01-13] MEDS ORDERED: ZITHROMAX250 MG PO (10:39)
[2019-01-13] MEDS ORDERED: PREDNISONE50 MG PO (10:39)
[2019-01-13] MEDS ORDERED: PROAIR HFA8.5 GM INH (10:39)
== END 2019-01-13 10:43 | disposition home or self-care (01) ==
LOC: ED 09:06
PROVIDERS: Nurse Practitioner Family
DX: J45.909 Unspecified asthma, uncomplicated (principal); Z88.2 Allergy status to sulfonamides; Z79.899 Other long term (current) drug therapy; Z90.710 Acquired absence of both cervix and uterus; Z87.891 Personal history of nicotine dependence

== ENCOUNTER 2019-03-12 06:18 | Emergency (ER) | payer OTHER ==
[~2019-03-12] VITALS: Ht 180.3 cm; Wt 72.7 kg
[~2019-03-12 06:18] MED LIST changes: +PREDNISONE50 MG PO; +PROAIR HFA8.5 GM INH
[2019-03-12 06:58] LABS: BILIRUBIN NEGATIVE (NEGATIVE); BLOOD NEGATIVE (NEGATIVE); CLARITY CLEAR (CLEAR); COLOR YELLOW (YELLOW); GLUCOSE NEGATIVE (NEGATIVE); KETONE NEGATIVE (NEGATIVE); LEUKO ESTERASE NEGATIVE (NEGATIVE); NITRITE NEGATIVE (NEGATIVE); PH 6.5 (5.0-9.0)
[2019-03-12 07:15] LABS: BACTERIA 1+; MUCOUS 2+
[2019-03-12 07:23] LABS: BASO # 0.1 10*3/uL (0.0-0.1); BASO % 0.8 % (0.0-1.0); EOS # 0.2 10*3/uL (0.0-0.4); EOS % 1.8 % (1.0-4.0); HEMATOCRIT 47.2 % (37.0-47.0); HEMOGLOBIN 15.3 g/dl (12.0-16.0); LYMPH # 3.1 10*3/uL (1.3-4.4); LYMPH % 31.8 % (27.0-41.0); MEAN CELL VOLUME 94.4 fl (81.0-99.0); MEAN CORPUSCULAR HGB 30.6 pg (27.0-31.0); MEAN CORPUSCULAR HGB CONC 32.4 g/dl (33.0-37.0); MONO % 9.9 % (3.0-9.0); NEUT # 5.4 10*3/uL (2.3-7.9); NEUT % 55.3 % (47.0-73.0); PLATELET COUNT AUTOMATED 315 10*3/uL (130-400); RED CELL DISTRI WIDTH 14.9 % (0-14.5); WHITE BLOOD COUNT 9.8 10*3/uL (4.8-10.8)
[2019-03-12 07:45] LABS: ALBUMIN 3.8 gm/dl (3.1-4.5); ALKALINE PHOSPHATASE 79 U/L (45-117); BUN 14 mg/dl (7-24); CHLORIDE 107 mmol/L (98-107); POTASSIUM 4.2 mmol/L (3.5-5.1); SGOT/AST 110 IU/L (3-35); SGPT/ALT 251 U/L (12-78); SODIUM 142 mmol/L (136-145)
[2019-03-12 08:24] LABS: THYROXINE (T4) TOTAL 11.7 ug/dl (4.8-13.9)
[2019-03-12 08:28] LABS: THYROID STIM HORMONE (HS) 1.55 uIU/ml (0.358-4.75)
[2019-03-13 06:12] LABS: HEPATITIS B SURFACE AG Negative (Negative)
[2019-03-13 10:41] LABS: HEPATITIS C VIRUS ANTIBODY >11.0 s/co (0.0-0.9)
== END 2019-03-12 08:15 | disposition home or self-care (01) ==
LOC: ED 06:18
PROVIDERS: Emergency Medicine; Emergency Medicine Emergency Medical Services
DX: R25.2 Cramp and spasm (principal); B19.20 Unspecified viral hepatitis C without hepatic coma; E07.89 Other specified disorders of thyroid; F17.200 Nicotine dependence, unspecified, uncomplicated; J45.909 Unspecified asthma, uncomplicated; Z98.890 Other specified postprocedural states; Z90.710 Acquired absence of both cervix and uterus; Z88.1 Allergy status to other antibiotic agents; Z88.8 Allergy status to other drugs, medicaments and biological substances; Z88.2 Allergy status to sulfonamides; Z79.899 Other long term (current) drug therapy

== ENCOUNTER 2019-08-05 09:38 | Emergency (ER) | payer OTHER ==
[~2019-08-05] VITALS: Wt 77.1 kg
[2019-08-05] MEDS ORDERED: PROVENTIL HFA6.7 GM INH (11:23)
[2019-08-05] MEDS ORDERED: PREDNISONE20 M1 PO (11:23)
[2019-08-05] MEDS ORDERED: TESSALON PERLE100 M1 PO (11:23)
== END 2019-08-05 11:37 | disposition home or self-care (01) ==
LOC: ED 09:38
DX: J45.909 Unspecified asthma, uncomplicated (principal); F11.90 Opioid use, unspecified, uncomplicated; F12.10 Cannabis abuse, uncomplicated; F17.210 Nicotine dependence, cigarettes, uncomplicated; Z98.890 Other specified postprocedural states; Z90.710 Acquired absence of both cervix and uterus; Z88.1 Allergy status to other antibiotic agents; Z88.2 Allergy status to sulfonamides; Z88.8 Allergy status to other drugs, medicaments and biological substances

== ENCOUNTER 2019-09-07 10:43 | Emergency (ER) | payer OTHER ==
[~2019-09-07] VITALS: Ht 180.3 cm; Wt 79.4 kg
[~2019-09-07 10:43] MED LIST changes: +PROVENTIL HFA6.7 GM INH; +TESSALON PERLE100 M1 PO
[2019-09-07 12:16] LABS: BASO # 0.1 10*3/uL (0.0-0.1); BASO % 0.6 % (0.0-1.0); EOS # 0.1 10*3/uL (0.0-0.4); EOS % 1.5 % (1.0-4.0); HEMATOCRIT 46.4 % (37.0-47.0); HEMOGLOBIN 15.1 g/dl (12.0-16.0); LYMPH # 2.2 10*3/uL (1.3-4.4); LYMPH % 26.4 % (27.0-41.0); MEAN CELL VOLUME 92.4 fl (81.0-99.0); MEAN CORPUSCULAR HGB 30.1 pg (27.0-31.0); MEAN CORPUSCULAR HGB CONC 32.5 g/dl (33.0-37.0); MEAN PLATELET VOLUME 9.2 fl (9.6-12.3); MONO # 0.6 10*3/uL (0.1-1.0); NEUT # 5.3 10*3/uL (2.3-7.9); NEUT % 64.1 % (47.0-73.0); PLATELET COUNT AUTOMATED 376 10*3/uL (130-400); RED BLOOD COUNT 5.02 10*6/uL (4.10-5.10); RED CELL DISTRI WIDTH 12.9 % (0-14.5); WHITE BLOOD COUNT 8.3 10*3/uL (4.8-10.8)
[2019-09-07 12:22] LABS: BILIRUBIN NEGATIVE (NEGATIVE); BLOOD NEGATIVE (NEGATIVE); CLARITY CLEAR (CLEAR); COLOR YELLOW (YELLOW); GLUCOSE NEGATIVE (NEGATIVE); KETONE NEGATIVE (NEGATIVE); LEUKO ESTERASE NEGATIVE (NEGATIVE); NITRITE NEGATIVE (NEGATIVE); PH 6.5 (5.0-9.0); SPECIFIC GRAVITY <= 1.005 (1.005-1.030); UROBILINOGEN 0.2 E.U./dl (0.2-1.0)
[2019-09-07 12:31] LABS: URINE AMPHETAMINES > 1000 (1000ng/ml); URINE BARBITURATES < 200 (200ng/ml); URINE BENZODIAZEPINES < 200 (200ng/ml); URINE CANNABINOIDS (THC) < 50 (50ng/ml); URINE COCAINE > 300 (300ng/ml); URINE METHADONE < 300 (300ng/ml); URINE OPIATES < 300 (300ng/ml)
[2019-09-07 12:31] LABS: ALBUMIN 4.3 gm/dl (3.1-4.5); ALKALINE PHOSPHATASE 76 U/L (45-117); BUN 9 mg/dl (7-24); CHLORIDE 107 mmol/L (98-107); CREATININE 0.79 mg/dL (0.55-1.02); POTASSIUM 3.2 mmol/L (3.5-5.1); SGOT/AST 32 IU/L (3-35); SGPT/ALT 68 U/L (12-78); SODIUM 139 mmol/L (136-145); TOTAL PROTEIN 8.7 gm/dL (6.4-8.2)
[2019-09-07 12:33] LABS: URINE PHENCYCLIDINE < 25 (25ng/ml)
[2019-09-07 12:34] LABS: ACETAMINOPHEN (TYLENOL) < 5.0 ug/ml (10-30); ETHYL ALCOHOL < 3.0 mg/dl (<3)
[2019-09-07 12:48] LABS: EPITHELIAL CELLS 0-2; WBC 0-2 wbc/hpf (0-5)
[2019-09-07] MEDS ORDERED: VISTARIL25 M2 PO (13:05)
== END 2019-09-07 13:37 | disposition home or self-care (01) ==
LOC: ED 10:43
PROVIDERS: Physician Assistant
DX: F41.9 Anxiety disorder, unspecified (principal); F17.200 Nicotine dependence, unspecified, uncomplicated; F11.90 Opioid use, unspecified, uncomplicated; Z88.2 Allergy status to sulfonamides; Z88.8 Allergy status to other drugs, medicaments and biological substances; Z79.899 Other long term (current) drug therapy; Z90.710 Acquired absence of both cervix and uterus

== ENCOUNTER 2019-09-18 14:46 | Inpatient (IN) | payer OTHER ==
[~2019-09-18] VITALS: Ht 180.3 cm; Wt 75.3 kg
--- NOTE | ~2019-09-18 | EKG ---
[place], [place] ELECTROCARDIOGRAM REPORT NAME: ANGÉLICA GROVES UNIT #: [id number] ROOM: [facility] DOCTOR: KAYY DRAFT REPORT BIRTHDATE: [birth year] [facility] Test Date: 2019-09-18 Test Time: 20:20:02 Pat Name: ANGÉLICA GROVES Department: Room: [facility] Gender: F Mh Teacher: Chika Cochran : 1980 Requested By: NISHANT MATA Order Number: [id number] Reading MD: Neville Burk MD Measurements Intervals [place] Rate: 94 P: 76 VT: 146 QRS: 80 QRSD: 82 T: 71 QT: 375 QTc: 469 Interpretive Statements Sinus rhythm Left atrial enlargement Nonspecific T abnrm, anterolateral leads Compared to ECG 04/09/2019 08:33:36 No significant changes Electronically Signed On 09-21-2019 13:01:33 PDT by Neville Burk MD CM:EKGRPT:ELECTROCARDIOGRAM REPORT 19 1301 NISHANT SULTANA DRAFT REPORT NISHANT MATA
--- NOTE | ~2019-09-18 | EKG ---
[place], [place] ELECTROCARDIOGRAM REPORT NAME: ANGÉLICA GROVES UNIT #: [id number] ROOM: [facility] DOCTOR: EPIPHANY DRAFT REPORT BIRTHDATE: [birth year] [facility] Test Date: 2019-09-18 Test Time: 15:43:43 Pat Name: ANGÉLICA GROVES Department: Room: [facility] Gender: F Director Construction Services: : 1980 Requested By: JOSE CONNER DNP Order Number: [id number] Reading MD: Neville Burk MD Measurements Intervals [place] Rate: 90 P: 67 CA: 146 QRS: 74 QRSD: 79 T: 72 QT: 381 QTc: 467 Interpretive Statements Sinus rhythm Probable left atrial enlargement Artifact in lead(s) III,aVL,aVF Compared to ECG 04/09/2019 08:33:36 No significant changes Electronically Signed On 09-21-2019 13:00:53 PDT by Neville Burk MD CM:EKGRPT:ELECTROCARDIOGRAM REPORT 1543 1300 JOSE CONNER DNP EPIPHANY DRAFT REPORT JOSE CONNER DNP
--- NOTE | ~2019-09-18 | EKG ---
[place], [place] ELECTROCARDIOGRAM REPORT NAME: ANGÉLICA GROVES UNIT #: [id number] ROOM: [facility] DOCTOR: KAYY DRAFT REPORT BIRTHDATE: [address] [facility] Test Date: 2019-09-18 Test Time: 17:58:02 Pat Name: ANGÉLICA GROVES Department: Room: [facility] Gender: F Aircraft Mechanic Electrical And Radio: : 1980 Requested By: JOSE CONNER DNP Order Number: [id number] Reading MD: Neville Burk MD Measurements Intervals [place] Rate: 85 P: 82 DE: 147 QRS: 81 QRSD: 86 T: 73 QT: 401 QTc: 477 Interpretive Statements Sinus rhythm Probable left atrial enlargement Baseline wander in lead(s) V2 Compared to ECG 04/09/2019 08:33:36 No significant changes Electronically Signed On 09-21-2019 13:01:28 PDT by Neville Burk MD CM:EKGRPT:ELECTROCARDIOGRAM REPORT [id number] 1301 JOSE CONNER DNP EPIPHANY DRAFT REPORT JOSE CONNER DNP
[~2019-09-18 14:46] MED LIST changes: +VISTARIL25 M2 PO
[2019-09-18 14:47] VITALS: BP 147/92
[2019-09-18 15:12] LABS: BASO # 0.1 10*3/uL (0.0-0.1); BASO % 0.6 % (0.0-1.0); EOS # 0.1 10*3/uL (0.0-0.4); EOS % 1.4 % (1.0-4.0); HEMATOCRIT 44.2 % (37.0-47.0); HEMOGLOBIN 14.4 g/dl (12.0-16.0); LYMPH # 2.3 10*3/uL (1.3-4.4); LYMPH % 26.1 % (27.0-41.0); MEAN CELL VOLUME 91.7 fl (81.0-99.0); MEAN CORPUSCULAR HGB 29.9 pg (27.0-31.0); MEAN CORPUSCULAR HGB CONC 32.6 g/dl (33.0-37.0); MEAN PLATELET VOLUME 9.2 fl (9.6-12.3); MONO # 0.7 10*3/uL (0.1-1.0); MONO % 8.2 % (3.0-9.0); NEUT # 5.6 10*3/uL (2.3-7.9); NEUT % 63.5 % (47.0-73.0); PLATELET COUNT AUTOMATED 301 10*3/uL (130-400); RED BLOOD COUNT 4.82 10*6/uL (4.10-5.10); WHITE BLOOD COUNT 8.9 10*3/uL (4.8-10.8)
[2019-09-18 15:45] LABS: ALBUMIN 3.9 gm/dl (3.1-4.5); ALKALINE PHOSPHATASE 62 U/L (45-117); BUN 11 mg/dl (7-24); CHLORIDE 107 mmol/L (98-107); LIPASE 101 U/L (73-393); POTASSIUM 3.8 mmol/L (3.5-5.1); SGOT/AST 32 IU/L (3-35); SGPT/ALT 64 U/L (12-78); SODIUM 138 mmol/L (136-145); TOTAL PROTEIN 7.6 gm/dL (6.4-8.2)
[2019-09-18 15:46] LABS: TROPONIN I < 0.015 ng/ml (<0.045)
[2019-09-18 16:00] VITALS: BP 146/92
[2019-09-18 16:02] LABS: INTERNATIONAL NORM RATIO 0.9 (2.0-3.5)
[2019-09-18 17:10] VITALS: BP 144/88
[2019-09-18] MEDS ORDERED: LAMICTAL25 MG PO (18:08)
[2019-09-18 18:30] VITALS: BP 144/88
--- NOTE | 2019-09-18 19:25 | NUR ---
A 39, admitted to , under the services of DESIREE Neves DO with a diagnosis of SYNCOPY. Chief complaint is SYNCOPY AND COLLAPSE. Patient arrived via stretcher from ER. Monitor applied. Initial assessment completed. Vital signs taken and recorded. DESIREE NEVES DO notified of admission to the unit. Orders received. See assessment for past medical history, medications and allergies. Patient and/or family oriented to unit. [facility] [[email or web address] visitation policy reviewed. Clothing/patient valuable form completed. LENCHO KUMARI
[2019-09-18 19:33] VITALS: BP 144/88
[2019-09-18 20:00] VITALS: BP 122/70
[2019-09-19] VITALS: BP 123/69
[2019-09-19 00:10] LABS: BILIRUBIN 1+ (NEGATIVE); BLOOD NEGATIVE (NEGATIVE); CLARITY SL CLOUDY (CLEAR); COLOR YELLOW (YELLOW); GLUCOSE NEGATIVE (NEGATIVE); KETONE TRACE (NEGATIVE); LEUKO ESTERASE NEGATIVE (NEGATIVE); NITRITE NEGATIVE (NEGATIVE); SPECIFIC GRAVITY 1.015 (1.005-1.030)
[2019-09-19 00:19] LABS: EPITHELIAL CELLS 45-50
[2019-09-19 00:20] LABS: BACTERIA 1+; RBC 0-2 rbc/hpf (0-2); WBC 0-2 wbc/hpf (0-5)
[2019-09-19 00:27] LABS: URINE AMPHETAMINES > 1000 (1000ng/ml); URINE BARBITURATES < 200 (200ng/ml); URINE BENZODIAZEPINES < 200 (200ng/ml); URINE CANNABINOIDS (THC) < 50 (50ng/ml); URINE COCAINE > 300 (300ng/ml); URINE METHADONE < 300 (300ng/ml)
[2019-09-19 00:31] LABS: URINE PHENCYCLIDINE < 25 (25ng/ml)
[2019-09-19 00:35] LABS: URINE OPIATES < 300 (300ng/ml)
--- NOTE | 2019-09-19 02:20 | NUR ---
PATIENT SIGNED OUT AMA. PAY STATION COLLECTOR AND HEPLOCK REMOVED. PATIENT AMBULATED OFF FLOOR.
== END 2019-09-19 02:20 | disposition left against medical advice (07) | DRG 204 ==
LOC: ED 14:46 → EDHOLD 18:01 → 5E 18:30
PROVIDERS: Nurse Practitioner Family; ADMIT Family Medicine
DX: R55 Syncope and collapse (principal); F41.9 Anxiety disorder, unspecified; J45.909 Unspecified asthma, uncomplicated; E03.9 Hypothyroidism, unspecified; E83.41 Hypermagnesemia; M50.30 Other cervical disc degeneration, unspecified cervical region; F17.200 Nicotine dependence, unspecified, uncomplicated; Z53.29 Procedure and treatment not carried out because of patient's decision for other reasons; Z90.710 Acquired absence of both cervix and uterus; Z82.0 Family history of epilepsy and other diseases of the nervous system; Z88.2 Allergy status to sulfonamides

== ENCOUNTER 2019-09-23 18:08 | Emergency (ER) | payer OTHER ==
[~2019-09-23] VITALS: Ht 180.3 cm; Wt 74.8 kg
[~2019-09-23 18:08] MED LIST changes: +LAMICTAL25 MG PO
== END 2019-09-23 19:09 | disposition home or self-care (01) ==
LOC: ED 18:08
DX: Z04.71 Encounter for examination and observation following alleged adult physical abuse (principal); J44.9 Chronic obstructive pulmonary disease, unspecified; E03.9 Hypothyroidism, unspecified; F17.200 Nicotine dependence, unspecified, uncomplicated; Z88.2 Allergy status to sulfonamides; Y08.89XA Assault by other specified means, initial encounter; Y93.89 Activity, other specified; Y92.89 Other specified places as the place of occurrence of the external cause; Y99.8 Other external cause status

== ENCOUNTER 2019-12-28 20:13 | Emergency (ER) | payer OTHER ==
[~2019-12-28] VITALS: Wt 77.1 kg
[2019-12-28 21:42] LABS: BASO # 0.1 10*3/uL (0.0-0.1); BASO % 0.6 % (0.0-1.0); EOS # 0.1 10*3/uL (0.0-0.4); EOS % 0.8 % (1.0-4.0); HEMATOCRIT 42.4 % (37.0-47.0); HEMOGLOBIN 13.9 g/dl (12.0-16.0); LYMPH # 2.4 10*3/uL (1.3-4.4); LYMPH % 29.2 % (27.0-41.0); MEAN CELL VOLUME 91.2 fl (81.0-99.0); MEAN CORPUSCULAR HGB 29.9 pg (27.0-31.0); MEAN CORPUSCULAR HGB CONC 32.8 g/dl (33.0-37.0); MEAN PLATELET VOLUME 9.3 fl (9.6-12.3); MONO # 0.7 10*3/uL (0.1-1.0); MONO % 8.8 % (3.0-9.0); NEUT % 60.5 % (47.0-73.0); PLATELET COUNT AUTOMATED 255 10*3/uL (130-400); RED BLOOD COUNT 4.65 10*6/uL (4.10-5.10); RED CELL DISTRI WIDTH 13.1 % (0-14.5); WHITE BLOOD COUNT 8.3 10*3/uL (4.8-10.8)
[2019-12-28 21:50] LABS: BILIRUBIN NEGATIVE (NEGATIVE); BLOOD NEGATIVE (NEGATIVE); CLARITY CLEAR (CLEAR); COLOR YELLOW (YELLOW); GLUCOSE NEGATIVE (NEGATIVE); KETONE NEGATIVE (NEGATIVE); LEUKO ESTERASE NEGATIVE (NEGATIVE); NITRITE NEGATIVE (NEGATIVE); SPECIFIC GRAVITY 1.005 (1.005-1.030); UROBILINOGEN 0.2 E.U./dl (0.2-1.0)
[2019-12-28 21:55] LABS: RBC 0-2 rbc/hpf (0-2)
[2019-12-28 21:56] LABS: ALBUMIN 3.5 gm/dl (3.1-4.5); ALKALINE PHOSPHATASE 63 U/L (45-117); BUN 8 mg/dl (7-24); CHLORIDE 112 mmol/L (98-107); CREATININE 0.86 mg/dL (0.55-1.02); POTASSIUM 3.6 mmol/L (3.5-5.1); SGOT/AST 22 IU/L (3-35); SGPT/ALT 71 U/L (12-78); SODIUM 143 mmol/L (136-145); TOTAL PROTEIN 7.1 gm/dL (6.4-8.2)
[2019-12-28 21:56] LABS: BACTERIA 2+; WBC 0-2 wbc/hpf (0-5)
== END 2019-12-29 02:36 | disposition home or self-care (01) ==
LOC: ED 20:13
PROVIDERS: Emergency Medicine
DX: R51 Headache (principal); R56.9 Unspecified convulsions; R20.0 Anesthesia of skin; R41.0 Disorientation, unspecified; R11.10 Vomiting, unspecified; J45.909 Unspecified asthma, uncomplicated; E03.9 Hypothyroidism, unspecified; J44.9 Chronic obstructive pulmonary disease, unspecified; F11.10 Opioid abuse, uncomplicated; F12.10 Cannabis abuse, uncomplicated; Z87.891 Personal history of nicotine dependence; Z90.710 Acquired absence of both cervix and uterus

== ENCOUNTER 2020-06-29 14:35 | Observation (INO) | payer OTHER ==
[~2020-06-29] VITALS: Ht 180.3 cm; Wt 68.0 kg
[2020-06-29 14:43] VITALS: BP 150/99
[2020-06-29 15:36] LABS: BASO # 0.1 10*3/uL (0.0-0.1); BASO % 0.6 % (0.0-1.0); EOS # 0.1 10*3/uL (0.0-0.4); EOS % 0.7 % (1.0-4.0); HEMATOCRIT 43.1 % (37.0-47.0); LYMPH # 2.5 10*3/uL (1.3-4.4); LYMPH % 28.1 % (27.0-41.0); MEAN CELL VOLUME 88.3 fl (81.0-99.0); MEAN CORPUSCULAR HGB 29.5 pg (27.0-31.0); MEAN CORPUSCULAR HGB CONC 33.4 g/dl (33.0-37.0); MEAN PLATELET VOLUME 9.2 fl (9.6-12.3); MONO # 0.7 10*3/uL (0.1-1.0); MONO % 7.5 % (3.0-9.0); NEUT # 5.7 10*3/uL (2.3-7.9); NEUT % 62.9 % (47.0-73.0); PLATELET COUNT AUTOMATED 291 10*3/uL (130-400); RED BLOOD COUNT 4.88 10*6/uL (4.10-5.10); RED CELL DISTRI WIDTH 13.4 % (0-14.5)
[2020-06-29 16:02] LABS: ALBUMIN 4.2 gm/dl (3.1-4.5); ALKALINE PHOSPHATASE 56 U/L (45-117); BUN 15 mg/dl (7-24); CHLORIDE 109 mmol/L (98-107); CREATININE 0.87 mg/dL (0.55-1.02); POTASSIUM 3.3 mmol/L (3.5-5.1); SGOT/AST 32 IU/L (3-35); SGPT/ALT 86 U/L (12-78); SODIUM 137 mmol/L (136-145); TOTAL PROTEIN 8.2 gm/dL (6.4-8.2)
[2020-06-29 20:00] VITALS: BP 146/90
[2020-06-29 20:30] VITALS: BP 146/90
[2020-06-30] VITALS: BP 136/85
[2020-06-30 06:52] LABS: BASO # 0.1 10*3/uL (0.0-0.1); BASO % 0.6 % (0.0-1.0); EOS # 0.2 10*3/uL (0.0-0.4); EOS % 2.4 % (1.0-4.0); LYMPH # 2.8 10*3/uL (1.3-4.4); MEAN CELL VOLUME 89.4 fl (81.0-99.0); MEAN CORPUSCULAR HGB 29.1 pg (27.0-31.0); MEAN CORPUSCULAR HGB CONC 32.6 g/dl (33.0-37.0); MEAN PLATELET VOLUME 9.6 fl (9.6-12.3); MONO # 0.6 10*3/uL (0.1-1.0); MONO % 7.8 % (3.0-9.0); NEUT # 4.1 10*3/uL (2.3-7.9); NEUT % 52.9 % (47.0-73.0); PLATELET COUNT AUTOMATED 262 10*3/uL (130-400); RED BLOOD COUNT 4.36 10*6/uL (4.10-5.10); RED CELL DISTRI WIDTH 13.2 % (0-14.5); WHITE BLOOD COUNT 7.8 10*3/uL (4.8-10.8)
[2020-06-30 07:23] LABS: CHLORIDE 113 mmol/L (98-107); POTASSIUM 3.9 mmol/L (3.5-5.1); SODIUM 141 mmol/L (136-145)
[2020-06-30 07:35] LABS: ALBUMIN 3.2 gm/dl (3.1-4.5); ALKALINE PHOSPHATASE 45 U/L (45-117); BUN 14 mg/dl (7-24); CHOLESTEROL 108 mg/dL (<200); CREATININE 0.81 mg/dL (0.55-1.02); FREE T4 1.14 ng/dl (0.76-1.46); HDL CHOLESTEROL 49 mg/dl (40-60); LDL CHOLESTEROL 49 mg/dL (9-159); SGOT/AST 24 IU/L (3-35); SGPT/ALT 61 U/L (12-78); TOTAL PROTEIN 6.4 gm/dL (6.4-8.2); TRIGLYCERIDES 49 mg/dl (<150); VLDL CHOLESTEROL 10 mg/dL (6-40)
[2020-06-30 07:36] LABS: ACT PARTIAL THROMBO TIME 24.5 SECONDS (20.0-32.1); INTERNATIONAL NORM RATIO 0.9 (2.0-3.5)
[2020-06-30 08:00] VITALS: BP 112/72
[2020-06-30] MEDS ORDERED: DOXYCYCLINE100 M3 PO (09:56)
[2020-06-30] MEDS ORDERED: KEFLEX500 M1 PO (09:56)
== END 2020-06-30 10:41 | disposition home or self-care (01) ==
LOC: ED 14:35 → EDHOLD 17:30 → 5E 18:08
PROVIDERS: Hospitalist; Nurse Practitioner Family; ADMIT Internal Medicine
DX: N61.0 Mastitis without abscess (principal); R56.9 Unspecified convulsions; R51 Headache; J45.909 Unspecified asthma, uncomplicated; E87.6 Hypokalemia; R00.0 Tachycardia, unspecified; A41.9 Sepsis, unspecified organism; E44.0 Moderate protein-calorie malnutrition; E83.41 Hypermagnesemia

== ENCOUNTER → 2020-07-21 | Outpatient (CLI) | payer OTHER ==
[~2020-07-21] MED LIST changes: +DOXYCYCLINE100 M3 PO; +KEFLEX500 M1 PO
== END | disposition home or self-care (01) ==
LOC: CT 07-04 13:00
PROVIDERS: ATTEND Internal Medicine Critical Care Medicine
DX: R91.8 Other nonspecific abnormal finding of lung field (principal)

== ENCOUNTER 2021-01-16 07:46 | Observation (INO) | payer OTHER ==
[~2021-01-16] VITALS: Ht 182.8 cm; Wt 63.3 kg
[2021-01-16 07:47] VITALS: BP 112/86
[2021-01-16 08:52] VITALS: BP 116/68
[2021-01-16 09:19] LABS: MEAN CELL VOLUME 92.8 fl (81.0-99.0); MEAN CORPUSCULAR HGB 29.7 pg (27.0-31.0); MEAN PLATELET VOLUME 9.2 fl (9.6-12.3); PLATELET COUNT AUTOMATED 275 10*3/uL (130-400); RED BLOOD COUNT 5.39 10*6/uL (4.10-5.10); RED CELL DISTRI WIDTH 13.6 % (0-14.5); WHITE BLOOD COUNT 25.9 10*3/uL (4.8-10.8)
[2021-01-16 09:40] LABS: ACT PARTIAL THROMBO TIME 22.2 SECONDS (20.0-32.1); ALBUMIN 4.1 gm/dl (3.1-4.5); ALKALINE PHOSPHATASE 89 U/L (45-117); BUN 18 mg/dl (7-24); CHLORIDE 109 mmol/L (98-107); LIPASE 146 U/L (73-393); POTASSIUM 3.6 mmol/L (3.5-5.1); SGOT/AST 123 IU/L (3-35); SGPT/ALT 104 U/L (12-78); SODIUM 142 mmol/L (136-145); TOTAL PROTEIN 8.2 gm/dL (6.4-8.2)
[2021-01-16 09:49] LABS: PLATELET SUFFICIENCY NORMAL (NORMAL); TOTAL CELLS COUNTED 100 #CELLS
[2021-01-16 10:01] LABS: ETHYL ALCOHOL < 3.0 mg/dl (<3); TROPONIN I 0.182 ng/ml (<0.045)
[2021-01-16 11:38] VITALS: BP 113/67
[2021-01-16 14:30] VITALS: BP 101/58
[2021-01-16 18:00] VITALS: BP 108/81
[2021-01-16 18:42] LABS: BILIRUBIN Negative (Negative); BLOOD Negative (Negative); CLARITY Cloudy (Clear); COLOR Yellow (Yellow); GLUCOSE 2+ (Negative); KETONE 1+ (Negative); LEUKO ESTERASE Negative (Negative); NITRITE Negative (Negative); PH 5.5 (4.5-8.0); SPECIFIC GRAVITY 1.025 (1.001-1.030); UROBILINOGEN 0.2 E.U./dl (0.0-1.0)
[2021-01-16 18:50] LABS: URINE AMPHETAMINES > 1000 (1000ng/ml); URINE BARBITURATES < 200 (200ng/ml); URINE BENZODIAZEPINES < 200 (200ng/ml); URINE CANNABINOIDS (THC) < 50 (50ng/ml); URINE COCAINE > 300 (300ng/ml); URINE METHADONE < 300 (300ng/ml); URINE OPIATES > 300 (300ng/ml)
[2021-01-16 18:52] LABS: BACTERIA TRACE; COARSE GRANULAR CAST 0-2; MUCOUS TRACE; RBC 0-2 rbc/hpf (0-2)
[2021-01-16 18:54] LABS: URINE PHENCYCLIDINE < 25 (25ng/ml)
[2021-01-16 20:00] VITALS: BP 105/69
[2021-01-17] VITALS: BP 109/65
[2021-01-17 06:21] LABS: BUN 12 mg/dl (7-24); CHLORIDE 111 mmol/L (98-107); CREATININE 0.76 mg/dL (0.55-1.02); POTASSIUM 3.7 mmol/L (3.5-5.1); SODIUM 142 mmol/L (136-145)
[2021-01-17 06:35] LABS: BASO % 0.2 % (0.0-1.0); EOS # 0.1 10*3/uL (0.0-0.4); EOS % 0.5 % (1.0-4.0); HEMATOCRIT 41.2 % (37.0-47.0); LYMPH # 2.2 10*3/uL (1.3-4.4); LYMPH % 12.3 % (27.0-41.0); MEAN CELL VOLUME 90.9 fl (81.0-99.0); MEAN CORPUSCULAR HGB 29.6 pg (27.0-31.0); MEAN CORPUSCULAR HGB CONC 32.5 g/dl (33.0-37.0); MEAN PLATELET VOLUME 9.8 fl (9.6-12.3); MONO # 0.9 10*3/uL (0.1-1.0); MONO % 5.1 % (3.0-9.0); NEUT # 14.5 10*3/uL (2.3-7.9); NEUT % 81.5 % (47.0-73.0); PLATELET COUNT AUTOMATED 257 10*3/uL (130-400); RED BLOOD COUNT 4.53 10*6/uL (4.10-5.10); RED CELL DISTRI WIDTH 13.6 % (0-14.5); WHITE BLOOD COUNT 17.9 10*3/uL (4.8-10.8)
[2021-01-17 08:00] VITALS: BP 116/68
[2021-01-17 12:00] VITALS: BP 110/75
[2021-01-17 16:00] VITALS: BP 112/66
[2021-01-17 20:00] VITALS: BP 107/65
== END 2021-01-17 21:10 | disposition left against medical advice (07) ==
LOC: ED 07:46 → EDHOLD 10:28 → 4E 10:28 → EDHOLD 10:41 → 4E 17:33
PROVIDERS: Emergency Medicine; Student in an Organized Health Care Education/Training Program; ADMIT Internal Medicine; ATTEND Internal Medicine
DX: T40.601A Poisoning by unspecified narcotics, accidental (unintentional), initial encounter (principal); R11.2 Nausea with vomiting, unspecified; I24.8 Other forms of acute ischemic heart disease; D72.829 Elevated white blood cell count, unspecified; D75.1 Secondary polycythemia; E87.2 Acidosis; E87.8 Other disorders of electrolyte and fluid balance, not elsewhere classified; N17.0 Acute kidney failure with tubular necrosis; R73.9 Hyperglycemia, unspecified; E83.41 Hypermagnesemia; R74.01 Elevation of levels of liver transaminase levels; F17.210 Nicotine dependence, cigarettes, uncomplicated; F12.90 Cannabis use, unspecified, uncomplicated; Y92.89 Other specified places as the place of occurrence of the external cause

== ENCOUNTER 2021-02-08 22:49 | Emergency (ER) | payer OTHER ==
[~2021-02-08] VITALS: Ht 182.8 cm; Wt 63.5 kg
[2021-02-08 23:27] LABS: BASO % 0.3 % (0.0-1.0); EOS # 0.1 10*3/uL (0.0-0.4); EOS % 1.2 % (1.0-4.0); LYMPH # 2.1 10*3/uL (1.3-4.4); LYMPH % 20.9 % (27.0-41.0); MEAN CELL VOLUME 88.7 fl (81.0-99.0); MEAN CORPUSCULAR HGB 29.2 pg (27.0-31.0); MEAN PLATELET VOLUME 9.3 fl (9.6-12.3); MONO # 0.8 10*3/uL (0.1-1.0); MONO % 8.1 % (3.0-9.0); NEUT # 6.9 10*3/uL (2.3-7.9); NEUT % 69.3 % (47.0-73.0); PLATELET COUNT AUTOMATED 293 10*3/uL (130-400); RED BLOOD COUNT 4.96 10*6/uL (4.10-5.10); RED CELL DISTRI WIDTH 13.3 % (0-14.5); WHITE BLOOD COUNT 9.9 10*3/uL (4.8-10.8)
[2021-02-08 23:43] LABS: ALBUMIN 3.8 gm/dl (3.1-4.5); ALKALINE PHOSPHATASE 65 U/L (45-117); BUN 12 mg/dl (7-24); CHLORIDE 108 mmol/L (98-107); CREATININE 0.94 mg/dL (0.55-1.02); POTASSIUM 3.8 mmol/L (3.5-5.1); SGOT/AST 31 IU/L (3-35); SGPT/ALT 63 U/L (12-78); SODIUM 140 mmol/L (136-145); TOTAL PROTEIN 7.8 gm/dL (6.4-8.2)
[2021-02-09 00:42] LABS: URINE AMPHETAMINES > 1000 (1000ng/ml); URINE BARBITURATES < 200 (200ng/ml); URINE BENZODIAZEPINES < 200 (200ng/ml); URINE CANNABINOIDS (THC) < 50 (50ng/ml); URINE COCAINE < 300 (300ng/ml); URINE METHADONE < 300 (300ng/ml); URINE OPIATES < 300 (300ng/ml)
[2021-02-09 00:46] LABS: BILIRUBIN Negative (Negative); BLOOD Negative (Negative); CLARITY Cloudy (Clear); COLOR Yellow (Yellow); GLUCOSE Negative (Negative); KETONE Trace (Negative); LEUKO ESTERASE Negative (Negative); NITRITE Negative (Negative); SPECIFIC GRAVITY 1.025 (1.001-1.030)
[2021-02-09 00:49] LABS: URINE PHENCYCLIDINE < 25 (25ng/ml)
[2021-02-09 01:04] LABS: EPITHELIAL CELLS TNTC; WBC 0-2 wbc/hpf (0-5)
== END 2021-02-09 01:40 | disposition home or self-care (01) ==
LOC: ED 22:49
PROVIDERS: Internal Medicine
DX: F15.10 Other stimulant abuse, uncomplicated (principal); Z88.2 Allergy status to sulfonamides; Z88.8 Allergy status to other drugs, medicaments and biological substances; Z98.890 Other specified postprocedural states; Z90.711 Acquired absence of uterus with remaining cervical stump

== ENCOUNTER 2022-02-18 05:22 | Emergency (ER) | payer OTHER ==
[~2022-02-18] VITALS: Ht 182.8 cm; Wt 63.5 kg
[2022-02-18 06:44] LABS: HEMATOCRIT 36.4 % (37.0-47.0); MEAN CELL VOLUME 82.4 fl (81.0-99.0); MEAN CORPUSCULAR HGB 28.7 pg (27.0-31.0); MEAN CORPUSCULAR HGB CONC 34.9 g/dl (33.0-37.0); MEAN PLATELET VOLUME 9.9 fl (9.6-12.3); PLATELET COUNT AUTOMATED 124 10*3/uL (130-400); RED BLOOD COUNT 4.42 10*6/uL (4.10-5.10); RED CELL DISTRI WIDTH 13.7 % (0-14.5); WHITE BLOOD COUNT 30.6 10*3/uL (4.8-10.8)
[2022-02-18 06:47] LABS: MANUAL DIFF REFLEX YES
[2022-02-18 06:59] LABS: BILIRUBIN Negative (Negative); BLOOD 2+ (Negative); CLARITY Cloudy (Clear); COLOR Yellow (Yellow); GLUCOSE Negative (Negative); KETONE Negative (Negative); LEUKO ESTERASE 1+ (Negative); NITRITE Negative (Negative); PH 5.5 (4.5-8.0); SPECIFIC GRAVITY 1.015 (1.001-1.030)
[2022-02-18 07:14] LABS: TOTAL CELLS COUNTED 100 #CELLS
[2022-02-18 07:15] LABS: PLATELET SUFFICIENCY LOW (NORMAL)
[2022-02-18 07:33] LABS: ALKALINE PHOSPHATASE 140 U/L (45-117); BUN 14 mg/dl (7-24); CHLORIDE 94 mmol/L (98-107); CREATININE 0.86 mg/dL (0.55-1.02); POTASSIUM 3.3 mmol/L (3.5-5.1); SGOT/AST 90 IU/L (3-35); SGPT/ALT 39 U/L (12-78); SODIUM 127 mmol/L (136-145); TOTAL PROTEIN 6.4 gm/dL (6.4-8.2)
[2022-02-18 08:08] LABS: BACTERIA 3+
[2022-02-18 08:09] LABS: WBC 0-2 wbc/hpf (0-5)
== END 2022-02-19 07:50 | disposition short-term general hospital (02) ==
LOC: ED 05:22
PROVIDERS: Emergency Medicine
DX: A41.9 Sepsis, unspecified organism (principal); Z20.822 Contact with and (suspected) exposure to COVID-19; R65.21 Severe sepsis with septic shock; E03.9 Hypothyroidism, unspecified; F17.210 Nicotine dependence, cigarettes, uncomplicated; Z88.2 Allergy status to sulfonamides; Z88.1 Allergy status to other antibiotic agents; Z98.890 Other specified postprocedural states